=== PATIENT | female | born 1975 ===

== ENCOUNTER 2024-12-12 07:13 | Day surgery (SDC) | payer OTHER ==
[~2024-12-12] VITALS: Ht 162.6 cm; Wt 97.0 kg
[2024-12-12] MEDS ORDERED: LOSA25 (07:36)
[2024-12-12] MEDS ORDERED: OMEP20ER (07:36)
[2024-12-12] MEDS ORDERED: VITAMIN D350 MC3 (07:36)
[2024-12-12 09:40] VITALS: BP 100/75
== END 2024-12-12 09:53 | disposition home or self-care (01) ==
LOC: ORSCSDS 07:13
PROVIDERS: Specialist
PROC: 0DBM8ZX Excision of Descending Colon, Via Natural or Artificial Opening Endoscopic, Diagnostic (ICD-10-PCS; principal; 2024-12-12 08:45)
PROC: 0DB68ZX Excision of Stomach, Via Natural or Artificial Opening Endoscopic, Diagnostic (ICD-10-PCS; principal; 2024-12-12 08:45)
PROC: 0DBN8ZX Excision of Sigmoid Colon, Via Natural or Artificial Opening Endoscopic, Diagnostic (ICD-10-PCS; principal; 2024-12-12 08:45)
PROC: 0DBL8ZX Excision of Transverse Colon, Via Natural or Artificial Opening Endoscopic, Diagnostic (ICD-10-PCS; principal; 2024-12-12 08:45)
DX: R13.10 Dysphagia, unspecified (principal); K22.10 Ulcer of esophagus without bleeding; K21.9 Gastro-esophageal reflux disease without esophagitis; R93.3 Abnormal findings on diagnostic imaging of other parts of digestive tract; Z98.84 Bariatric surgery status; Z12.11 Encounter for screening for malignant neoplasm of colon; D12.3 Benign neoplasm of transverse colon; D12.4 Benign neoplasm of descending colon; D12.5 Benign neoplasm of sigmoid colon; K64.8 Other hemorrhoids; Z83.719 Family history of colon polyps, unspecified; I10 Essential (primary) hypertension; Z79.899 Other long term (current) drug therapy
CPT/HCPCS: 88305; 88342; J2704; J7120